=== PATIENT | male | born 1975 | race Caucasian/White ===

== ENCOUNTER 2023-04-20 10:03 | Inpatient (IN) | payer OTHER ==
[2023-04-20 11:15] VITALS: BMI 31.8
[2023-04-20] MEDS ORDERED: PIPERACILLIN/TAZOB 3.375 GM 3.375 GM in DEXTROSE 5%-WATER - 50 ML IVPB ONE (11:15)
[2023-04-20] MEDS ORDERED: VANCOMYCIN 1,000 MG in DEXTROSE 5%-WATER - 250 ML IVPB ONE (11:15)
[2023-04-20 11:51] LABS: BASO % 0.8 % (0-2.0); EOS % 3.9 % (0-4.5); HEMATOCRIT 30.2 % (35.4-49); LYMPH % 13.1 % (8-40); MCH 27.8 pg (25.7-33.7); MCHC 33.2 g/dl (32.0-35.9); MEAN CELL VOLUME 83.6 fl (80-96); MONO % 8.7 % (3.8-10.2); NEUT % 73.5 % (42.8-82.8); PLATELET COUNT 263 10^3/uL (134-434); RBC 3.61 M/mm3 (4.00-5.60); RDW 15.7 % (11.9-15.9); WHITE BLOOD COUNT 6.9 K/mm3 (4.0-10.0)
[2023-04-20 12:01] LABS: INR 1.15 (0.83-1.09); PROTHROMBIN TIME (PATIENT) 13.3 SEC (9.7-13.0)
[2023-04-20 12:04] LABS: ACTIVATED PTT 35.7 SECONDS (25.2-36.5)
[2023-04-20] MEDS ORDERED: ACETAMINOPHEN INJECTION 100 ML IVPB ONE (12:10)
[2023-04-20] MEDS: ACETAMINOPHEN 1000 MG/100 ML BAG IVPB ONE (12:15)
[2023-04-20] MEDS: SODIUM CHLORIDE 0.9% 500 ML INFUS.BAG IV ONE (12:15)
[2023-04-20 12:20] LABS: CHLORIDE 99 mmol/L (98-107); SODIUM 135 mmol/L (136-145)
[2023-04-20 12:22] LABS: ALBUMIN 2.8 g/dl (3.4-5.0); ANION GAP 10 mmol/L (4-13); CALCIUM 8.2 mg/dL (8.5-10.1); CO2 26 mmol/L (21-32)
[2023-04-20 12:23] LABS: BLOOD UREA NITROGEN 65.1 mg/dL (7-18); GLUCOSE,RANDOM 127 mg/dL (74-106)
[2023-04-20 12:26] LABS: ERYTHROCYTE SEDIMENTATION RATE 105 mm/hr (0-10); SGOT/AST 7 U/L (15-37); SGPT/ALT 12 U/L (13-61)
[2023-04-20 12:27] LABS: BILIRUBIN,TOTAL 0.3 mg/dL (0.2-1); TOT PROT 7.3 g/dl (6.4-8.2)
[2023-04-20 12:28] LABS: ALK PHOS 120 U/L (45-117)
[2023-04-20 12:29] LABS: CREATININE 12.7 mg/dL (0.55-1.3)
[2023-04-20] MEDS ORDERED: SODIUM CHLORIDE 250 ML IV PRN (13:23)
[2023-04-20] MEDS: HEPARIN NA (PORCINE) 5,000 UNITS/ML 1ML VIAL IVPUSH ONE (15:05)
[2023-04-20] MEDS: EPOETIN ALFA-EPBX 4,000 UNIT/ML VIAL SQ ONE (17:29)
[2023-04-20] MEDS: INSULIN ASPART SLIDING SCALE (NOVOLOG) 1 VIAL SQ SCH (20:04)
[2023-04-20] MEDS: SEVELAMER CARBONATE 800 MG TAB (FP) PO SCH (20:06)
[2023-04-20] MEDS ORDERED: INSULIN (NOVOLOG) ASPART 100 UNITS/ML 10ML VIAL ONE (21:47)
[2023-04-20] MEDS: ATORVASTATIN CA 20 MG TABLET (FP) PO SCH (22:49)
[2023-04-20] MEDS: INSULIN (LEVEMIR) 100 UNITS/ML UNITS SQ SCH (23:34)
[2023-04-21 09:12] LABS: BASO % 0.8 % (0-2.0); EOS % 2.2 % (0-4.5); HEMATOCRIT 28.8 % (35.4-49); HEMOGLOBIN 9.8 GM/dL (11.7-16.9); MCH 28.4 pg (25.7-33.7); MCHC 34.2 g/dl (32.0-35.9); PLATELET COUNT 266 10^3/uL (134-434); RBC 3.47 M/mm3 (4.00-5.60); RDW 15.6 % (11.9-15.9); WHITE BLOOD COUNT 6.4 K/mm3 (4.0-10.0)
[2023-04-21] MEDS: FAMOTIDINE 20 MG TABLET PO SCH (09:17)
[2023-04-21] MEDS: ESCITALOPRAM OXALATE 10 MG TABLET PO SCH (09:17)
[2023-04-21] MEDS: amLODIPine BESYLATE 5 MG TABLET (FP) PO SCH (09:17)
[2023-04-21] MEDS: CARVEDILOL 6.25 MG TABLET (FP) PO SCH (09:17)
[2023-04-21 10:25] LABS: ALBUMIN 2.6 g/dl (3.4-5.0); ALK PHOS 104 U/L (45-117); ANION GAP 4 mmol/L (4-13); BILIRUBIN,TOTAL 0.4 mg/dL (0.2-1); CALCIUM 8.2 mg/dL (8.5-10.1); CHLORIDE 100 mmol/L (98-107); CO2 34 mmol/L (21-32); CREATININE 8.7 mg/dL (0.55-1.3); GLUCOSE,RANDOM 97 mg/dL (74-106); MAGNESIUM 2.4 mg/dL (1.8-2.4); PHOSPHOROUS 4.8 mg/dL (2.5-4.9); POTASSIUM 4.9 mmol/L (3.5-5.1); SGOT/AST 6 U/L (15-37); SGPT/ALT 10 U/L (13-61); SODIUM 138 mmol/L (136-145); TOT PROT 7.2 g/dl (6.4-8.2)
[2023-04-21] MEDS: ACETAMINOPHEN 325 MG TABLET (FP) PO PRN (14:30)
[2023-04-22] MEDS: ACETAMINOPHEN 1000 MG/100 ML BAG IVPB ONE (05:01)
[2023-04-22] MEDS: LIDOCAINE 4% PATCH TP SCH (06:08)
[2023-04-22] MEDS ORDERED: SODIUM CHLORIDE 250 ML IV PRN (08:28)
[2023-04-22 09:19] LABS: HEMATOCRIT 28.6 % (35.4-49); HEMOGLOBIN 9.7 GM/dL (11.7-16.9); MCH 28.3 pg (25.7-33.7); MCHC 33.9 g/dl (32.0-35.9); MEAN CELL VOLUME 83.3 fl (80-96); MEAN PLT VOLUME 8.8 fl (7.5-11.1); PLATELET COUNT 257 10^3/uL (134-434); RBC 3.43 M/mm3 (4.00-5.60); RDW 15.8 % (11.9-15.9); WHITE BLOOD COUNT 5.8 K/mm3 (4.0-10.0)
[2023-04-22 09:26] LABS: CHLORIDE 97 mmol/L (98-107); POTASSIUM 4.9 mmol/L (3.5-5.1); SODIUM 137 mmol/L (136-145)
[2023-04-22 09:38] LABS: ALBUMIN 2.6 g/dl (3.4-5.0); ANION GAP 7 mmol/L (4-13); BLOOD UREA NITROGEN 45.6 mg/dL (7-18); CALCIUM 8.4 mg/dL (8.5-10.1); CO2 33 mmol/L (21-32); GLUCOSE,RANDOM 88 mg/dL (74-106)
[2023-04-22 09:41] LABS: SGPT/ALT 11 U/L (13-61)
[2023-04-22 09:42] LABS: SGOT/AST 4 U/L (15-37)
[2023-04-22 09:44] LABS: ALK PHOS 107 U/L (45-117); BILIRUBIN,TOTAL 0.4 mg/dL (0.2-1); TOT PROT 7.2 g/dl (6.4-8.2)
[2023-04-22 09:50] LABS: CREATININE 10.9 mg/dL (0.55-1.3)
[2023-04-22] MEDS: EPOETIN ALFA-EPBX 10,000 UNIT/ML VIAL IVPUSH ONE (11:10)
[2023-04-22] MEDS ORDERED: INSULIN (NOVOLOG) ASPART 100 UNITS/ML 10ML VIAL ONE (21:29)
[2023-04-22] MEDS: LIDOCAINE PATCH REMOVAL MC SCH (21:58)
[2023-04-23] MEDS ORDERED: BUPIVACAINE HCL/PF 0.25% (2.5MG/ML) 10 ML VIAL ONE (07:13)
[2023-04-23] MEDS ORDERED: LIDOCAINE HCL 1%, 10 MG/ML (20ML VIAL) ONE (07:13)
[2023-04-23] MEDS: LIDOCAINE HCL 1%, 10 MG/ML (20ML VIAL) ID ONE (07:50)
[2023-04-23] MEDS: BUPIVACAINE HCL 0.5% 250 MG/50 ML VIAL NR ONE (07:50)
[2023-04-23 10:54] LABS: CRYSTALS,SYNOVIAL FLUID NEGATIVE
[2023-04-23] MEDS ORDERED: morphine SULFATE 4 MG/ML VIAL IVPUSH PRN (10:55)
[2023-04-23 11:31] LABS: BF WBC & OTHER NUCLEATED CELLS 50386 /mm3
[2023-04-23 11:56] LABS: BODY FLUID MACROPHAGES 3 %; BODY FLUID MONOCYTE 3 %
[2023-04-23] MEDS: CEFTRIAXONE 2 GM in DEXTROSE 5%-WATER 100 ML IVPB SCH (12:20)
[2023-04-24] MEDS ORDERED: INSULIN (NOVOLOG) ASPART 100 UNITS/ML 10ML VIAL ONE ×3 (06:05→21:47)
[2023-04-24] MEDS ORDERED: SODIUM CHLORIDE 250 ML IV PRN (13:10)
[2023-04-24 13:48] LABS: HEMATOCRIT 27.5 % (35.4-49); MCH 27.2 pg (25.7-33.7); MCHC 32.7 g/dl (32.0-35.9); MEAN CELL VOLUME 83.2 fl (80-96); MEAN PLT VOLUME 8.8 fl (7.5-11.1); PLATELET COUNT 248 10^3/uL (134-434); RDW 15.5 % (11.9-15.9); WHITE BLOOD COUNT 6.9 K/mm3 (4.0-10.0)
[2023-04-24 14:15] LABS: CHLORIDE 98 mmol/L (98-107); POTASSIUM 5.1 mmol/L (3.5-5.1); SODIUM 137 mmol/L (136-145)
[2023-04-24 14:18] LABS: CALCIUM 8.5 mg/dL (8.5-10.1)
[2023-04-24 14:19] LABS: ALBUMIN 2.4 g/dl (3.4-5.0); ANION GAP 9 mmol/L (4-13); BLOOD UREA NITROGEN 45.4 mg/dL (7-18); CO2 29 mmol/L (21-32); GLUCOSE,RANDOM 92 mg/dL (74-106)
[2023-04-24 14:22] LABS: PHOSPHOROUS 5.2 mg/dL (2.5-4.9); SGOT/AST 9 U/L (15-37); SGPT/ALT 12 U/L (13-61)
[2023-04-24] MEDS: EPOETIN ALFA-EPBX 10,000 UNIT/ML VIAL IVPUSH ONE (14:23)
[2023-04-24 14:24] LABS: BILIRUBIN,TOTAL 0.3 mg/dL (0.2-1); TOT PROT 7.1 g/dl (6.4-8.2)
[2023-04-24 14:25] LABS: ALK PHOS 122 U/L (45-117)
[2023-04-24 14:29] LABS: CREATININE 10.3 mg/dL (0.55-1.3)
[2023-04-24] MEDS: oxyCODONE HCL 5 MG TABLET PO ONE (22:42)
[2023-04-25] MEDS: oxyCODONE HCL 5 MG TABLET PO PRN (09:39)
[2023-04-25] MEDS ORDERED: INSULIN (NOVOLOG) ASPART 100 UNITS/ML 10ML VIAL ONE ×2 (10:49→22:00)
[2023-04-25 14:31] VITALS: RESP 18
[2023-04-25] MEDS: VANCOMYCIN PREMIX 1.5 GM 1,500 MG/300 ML BAG IVPB ONE (15:02)
[2023-04-26] MEDS ORDERED: SODIUM CHLORIDE 250 ML IV PRN (14:12)
[2023-04-26 14:43] VITALS: BP 151/77; PULSE 73; TEMP 98.6
[2023-04-27] MEDS ORDERED: EPOETIN ALFA-EPBX 10,000 UNIT/ML VIAL SQ ONE (14:12)
== END 2023-04-26 19:34 | disposition home or self-care (01) | DRG 629 ==
LOC: JER 10:03 → JERBED 12:07 → J8W 18:20
PROVIDERS: ADMIT Internal Medicine; ATTEND Internal Medicine
PROC: 0S9C3ZX Drainage of Right Knee Joint, Percutaneous Approach, Diagnostic (ICD-10-PCS; 2023-04-22)
PROC: 0QBQ3ZX Excision of Right Toe Phalanx, Percutaneous Approach, Diagnostic (ICD-10-PCS; 2023-04-23)
PROC: 0QBP3ZX Excision of Left Metatarsal, Percutaneous Approach, Diagnostic (ICD-10-PCS; principal; 2023-04-23 07:30)
DX: E11.69 Type 2 diabetes mellitus with other specified complication (principal); I12.0 Hypertensive chronic kidney disease with stage 5 chronic kidney disease or end stage renal disease; M86.8X7 Other osteomyelitis, ankle and foot; L97.518 Non-pressure chronic ulcer of other part of right foot with other specified severity; L97.528 Non-pressure chronic ulcer of other part of left foot with other specified severity; E11.621 Type 2 diabetes mellitus with foot ulcer; E78.5 Hyperlipidemia, unspecified; E11.22 Type 2 diabetes mellitus with diabetic chronic kidney disease; M25.461 Effusion, right knee; N18.6 End stage renal disease; B95.1 Streptococcus, group B, as the cause of diseases classified elsewhere; D63.1 Anemia in chronic kidney disease; M25.561 Pain in right knee; Z99.2 Dependence on renal dialysis
CPT/HCPCS: 36415; 73562-TC-RT-FY; 73630-TC-LT; 80048; 80053; 82962; 83036; 83735; 84100; 85025; 85027; 85610; 85651; 85730; 86140; 86704; 86803; 86850; 86900; 86901; 87040; 87070; 87075; 87077; 87186; 87205; 87340; 87517; 89060; 93005; 93010; 99285-25; G0480; J0131; J1644; Q5106